=== PATIENT | male | born 1945 | race Caucasian/White ===

== ENCOUNTER 2017-09-12 14:15 | Emergency (ER) | payer BC, MEDICARE ==
[~2017-09-12 14:15] MED LIST: Amoxicillin/Clavulanate K 875-125 MG Tab ONE
--- NOTE | 2017-09-12 15:46 | EDM.PDOC ---
ED HPI GENERAL MEDICAL PROBLEM - General Chief Complaint: General Stated Complaint: LEFT HAND LACERATION ACCIDENT Time Seen by Provider: 09/12/17 14:15 Source of Information: Reports: Patient History Limitations: Reports: No Limitations - History of Present Illness INITIAL COMMENTS - FREE TEXT/NARRATIVE: According to patient he was sitting on the dock and fishing when the dock broke and pt fell into the [place] water. His left hand sustained laceration from the fall.Pt think his hand got brushed against the magdalena nail of the wooden plank. No other injuries. Pt does c/o pain in his hand severity of 5/10. No tingling or numbness in the hand or finger. 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 Pt is not sure of his last tetanus shot. Onset: Today Onset Date: 09/12/17 Onset Time: 13:00 Location: Reports: Upper Extremity, Left Quality: Reports: Ache Severity: Moderate Improves with: Reports: None Worsens with: Reports: None Associated Symptoms: Denies: Confusion, Chest Pain, Cough, Fever/Chills, Headaches, Nausea/Vomiting, Rash, Seizure, Shortness of Breath, Syncope, Weakness left hand Pain Score (Numeric/FACES): 5 - Related Data Allergies Allergy/AdvReac Type Severity Reaction Status Date / Time No Known Allergies Allergy Verified 09/12/17 14:52 Home Meds: Home Meds Loratadine [Claritin] 10 mg PO DAILY 09/12/17 [History] Pravastatin Sodium [Pravastatin (Pravachol)] 40 mg PO DAILY 09/12/17 [History] Terazosin HCl [Terazosin] 10 mg PO DAILY 09/12/17 [History] amLODIPine Besylate [Amlodipine Besylate] 5 mg PO DAILY 09/12/17 [History] ED ROS GENERAL - Review of Systems Review Of Systems: See Below Constitutional: Denies: Fever, Chills, Weakness, Night Sweats, Diaphoresis HEENT: Denies: Rhinitis, Throat Pain, Throat Swelling Respiratory: Denies: Shortness of Breath, Wheezing, Cough, Sputum Cardiovascular: Denies: Chest Pain, Lightheadedness Endocrine: Denies: Fatigue GI/Abdominal: Denies: Abdominal Pain, Nausea, Vomiting Skin: Reports: Wound. Denies: Bruising, Pruritis, Rash ED EXAM, GENERAL - Physical Exam Exam: See Below Exam Limited By: No Limitations General Appearance: Alert, WD/WN, Mild Distress Eye Exam: Bilateral Eye: EOMI, PERRL Ears: Normal External Exam, Normal Canal, Hearing Grossly Normal, Normal TMs Ear Exam: Bilateral Ear: Auricle Normal, Canal Normal, TM normal Nose: Normal Inspection, Normal Mucosa, No Blood Throat/Mouth: Normal Inspection, Normal Lips, Normal Teeth, Normal Gums, Normal Oropharynx, Normal Voice, No Airway Compromise Head: Atraumatic, Normocephalic Neck: Normal Inspection, Supple, Non-Tender, Full Range of Motion Respiratory/Chest: No Respiratory Distress, Lungs Clear, Normal Breath Sounds, No Accessory Muscle Use, Chest Non-Tender Cardiovascular: Normal Peripheral Pulses, Regular Rate, Rhythm, No Edema, No Gallop, No JVD, No Murmur, No Rub Extremities: Normal Range of Motion, No Pedal Edema, Normal Capillary Refill, Other (Left hand: there is a irregular 4cm long deep laceration over the fisrt websapce. the laceration extends into the deep subcutaneous lacer and exposes the muscle, but no muscle tear or injury. he does have good ROM of all the small joint of thumb and index finger. 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) Neurological: Alert, Oriented ED GENERAL MEDICAL PROCEDURES - Laceration/Wound Repair Left Hand Lac/wound length in cm: 4 Appearance: Irregular Distal NVT: Neuro & Vascular Intact Anesthetic Type: Local Local Anesthesia - Lidocaine (Xylocaine): 1% with EPI Local Anesthetic Volume: 2cc Skin Prep: Providone-Iodine (Betadine) Exploration/Debridement/Repair: Wound Explored, Minimal Debridement Suture Size: 4-0 # of Sutures: 8 Suture Type: Interrupted Suture Size: other (5-O) # of Sutures: 2 Repaired with: Vicryl Course - Vital Signs Text/Narrative:: Pt reassured that he has deep laceration of the left hand. After consent was obtained, the wound was closed in layers.And pressure dressing done.Pt did receive Tdap today as he is not sure of tetanus dose. The has been cleaned explored and debriefed. But as the wound was soaked in [place] water and is deep wound, I have empirically covered him with augmentin 875md twice daily for 10 days. Pt advised elevation of the arm. Avoid getting the wound wet. Motrin 600mg 3 times daily as needed for pain. Followup in clinic on thursday for wound check. Last Recorded V/S: Last Vital Signs Temp 97.9 F 09/12/17 14:39 Pulse 52 L 09/12/17 14:39 Resp 16 09/12/17 14:39 BP 125/71 09/12/17 14:39 Pulse Ox 100 09/12/17 14:39 Departure - Departure Time of Disposition: 15:00 Disposition: Home, Self-Care 01 Condition: Fair Clinical Impression: Hand laceration - Discharge Information Instructions: Amoxicillin; Clavulanic Acid tablets, Laceration Care, Adult Referrals: PCP,None [Primary Care Provider] - Forms: ED Department Discharge Additional Instructions: Return to the clinic on Thursday to have the wound re-evaluated with Dr. Hicks, do not removed the dressing until then. Keep the dressing clean and dry until the visit also. Return to have the sutures removed in 7-10 days, closer to 10 if possible. Take the antibiotic as prescribed and return if there are any signs of infection or you have any questions you can also call [phone] [facility] [phone]. - Problem List & Annotations (1) Hand laceration SNOMED Code(s): 771502831 Code(s): S61.419A - LACERATION WITHOUT FOREIGN BODY OF UNSP HAND, INIT ENCNTR Status: Acute Current Visit: Yes - Problem List Review Problem List Initiated/Reviewed/Updated: Yes - Assessment/Plan Assessment:: Left hand 4 cm deep laceration Plan: Pt reassured that he has deep laceration of the left hand. After consent was obtained, the wound was closed in layers.And pressure dressing done.Pt did receive Tdap today as he is not sure of tetanus dose. The has been cleaned explored and debriefed. But as the wound was soaked in [place] water and is deep wound, I have empirically covered him with augmentin 875md twice daily for 10 days. Pt advised elevation of the arm. Avoid getting the wound wet. Motrin 600mg 3 times daily as needed for pain. Followup in clinic on thursday for wound check.
== END 2017-09-12 15:00 | disposition home or self-care (01) ==
LOC: LB.ED 14:15
DX: S61.412A Laceration without foreign body of left hand, initial encounter (principal); Z79.899 Other long term (current) drug therapy; W16.112A Fall into natural body of water striking water surface causing other injury, initial encounter
CPT/HCPCS: 12002; 12042; 99282; 99282-25; A9270-GY